=== PATIENT | female | born 2000 | race Caucasian/White ===

== ENCOUNTER 2024-07-14 21:49 | Emergency (ER) | payer OTHER ==
[~2024-07-14] VITALS: Ht 149.8 cm; Wt 104.3 kg
[~2024-07-14 21:49] MED LIST: AMOXICILLIN500 M2 PO; MOTRIN400 MG PO; MOTRIN600 MG PO
[2024-07-14 21:57] VITALS: BP 139/73
[2024-07-14] MEDS ORDERED: NAPROSYN500 MG PO (22:34)
[2024-07-14] MEDS ORDERED: Ketorolac Tromethamine 60 MG/2 ML VIAL IM ONE (22:35)
== END 2024-07-14 22:56 | disposition home or self-care (01) ==
LOC: ED 21:49
DX: S93.401A Sprain of unspecified ligament of right ankle, initial encounter (principal); Z98.890 Other specified postprocedural states; W19.XXXA Unspecified fall, initial encounter; Y93.K1 Activity, walking an animal; Y92.009 Unspecified place in unspecified non-institutional (private) residence as the place of occurrence of the external cause; Y99.8 Other external cause status